=== PATIENT | female | born 1935 | race Caucasian/White ===

== ENCOUNTER 2017-09-26 17:34 | Emergency (ER) | payer OTHER ==
[~2017-09-26] VITALS: Ht 162.6 cm; Wt 56.2 kg
[~2017-09-26 17:34] MED LIST: ASPIRIN EC81 M1 PO; CRESTOR10 M1 PO; CYMBALTA20 M1 PO; DULOXETINE HCL60 MG PO; LEVOTHYROXINE75 MCG PO; METOPROLOL TART25 M1 PO; NAMENDA10 M2 PO; NEXIUM20 M1 PO; PROAIR HFA8.5 GM INH; SYMBICORT 16010.2 GM INH; VITAMIN B-121000 MC3 PO; VITAMIN D1000 UNIT PO
[2017-09-26 17:58] VITALS: BP 168/88
--- NOTE | 2017-09-26 21:01 | CT SCAN REPORT ---
EXAMINATION: CT HEAD WITHOUT CONTRAST CLINICAL INFORMATION: Head trauma. Laceration. COMPARISON: Head CT dated 03/20/2017. TECHNIQUE: Contiguous axial imaging was performed from the skull base to vertex without intravenous administration of contrast. DLP: 603.3 mGy-cm FINDINGS: There is no evidence of acute intracranial hemorrhage or territorial infarction. No abnormal mass effect or midline shift is seen. Quinn to white matter differentiation is well preserved. No extra-axial fluid collections are identified. Moderate to severe chronic white matter microangiopathic changes are present with diffuse parenchymal volume loss. Ventricular prominence is unchanged compared to prior imaging. The osseous structures and soft tissues are normal. The mastoid air cells and visualized portions of the paranasal sinuses are well aerated. 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 No acute intracranial pathology or hemorrhage.
--- NOTE | 2017-09-26 21:09 | ED HEAD/FACIAL INJ COMPLAINT ---
History of Present Illness General Chief Complaint: Facial or Head Injury Stated Complaint: FELL, HIT HEAD, LAC TO HEAD Source: patient Exam Limitations: dementia Vital Signs & Intake/Output Vital Signs & Intake/Output Vital Signs Date Time Temp Pulse Resp B/P B/P Pulse O2 O2 Flow FiO2 Mean Ox Delivery Rate 09/26 1758 97.9 81 16 168/88 95 Room Air Allergies Coded Allergies: No Known Drug Allergies (Intermediate, NONE 01/09/17) Reconcile Medications Albuterol Sulfate (Proair Hfa) 90 MCG HFA.AER.AD 1-2 PUF INH Q4-6 PRN PRN shortness of breath Aspirin (Ecotrin*) 81 MG TABLET.DR 1 TAB PO DAILY HEART/BLOOD (Reported) Budesonide/Formoterol Fumarate (Symbicort 160-4.5 Mcg Inhaler) (Unknown Strength ) HFA.AER.AD (Unknown Dose) INH AD PRN COPD (Reported) Cholecalciferol (Vitamin D3) (Vitamin D) 1,000 UNIT TABLET 1 TAB PO DAILY SUPPLEMENT (Reported) Cyanocobalamin (Vitamin B-12) 1,000 MCG TABLET 1 TAB PO DAILY SUPPLEMENT ( Reported) Duloxetine HCl 60 MG CAPSULE.DR 1 CAP PO DAILY MENTAL HEALTH/NERVE PAIN ( Reported) Esomeprazole Magnesium (Nexium) 20 MG CAPSULE.DR 1 CAP PO DAILY HEARTBURN ( Reported) Levothyroxine Sodium 75 MCG TABLET 1 TAB PO DAILY AC THYROID (Reported) Memantine HCl (Namenda) 10 MG TABLET 1 TAB PO BID MEMORY (Reported) Metoprolol Tartrate 25 MG TABLET 1 TAB PO BID BP (Reported) Rosuvastatin Calcium (Crestor) 10 MG TABLET 1 TAB PO DAILY CHOLESTEROL ( Reported) Triage Note: PT STATES HIT HER HEAD TODAY. PT REPORTS HITTING HER HEAD ON A CABINET DOOR LAC TO LEFT SIDE OF HEAD. PT IS NOT ON BLOOD THINNERS Triage Nurses Notes Reviewed? yes Onset: Abrupt Severity: mild Location: parietal Method of Injury: direct blow Loss of Consciousness: no loss of consciousness HPI: 82-year-old female comes into the emergency room for further evaluation after hitting her head on a cabinet at home. She has a laceration to the left scalp. No loss of consciousness. No vomiting. No headache. No blood thinners. Comes in for further evaluation. (Leonardo PUENTE,Kyle) Past History Travel History Traveled to [place] past 21 day No Medical History Any Pertinent Medical History? see below for history Neurological: dementia EENT: NONE Cardiovascular: NONE Respiratory: NONE Gastrointestinal: NONE Hepatic: NONE Renal: NONE Musculoskeletal: osteoarthritis Psychiatric: NONE Endocrine: NONE Blood Disorders: NONE Cancer(s): NONE DIE MECHANIC/Reproductive: NONE Tetanus Vaccine: 03/20/17 Surgical History Surgical History: non-contributory Psychosocial History What is your primary language Ukrainian Tobacco Use: Never used ETOH Use: denies use Illicit Drug Use: denies illicit drug use Family History Hx Contributory? No (Kyle Davis) Review of Systems Review of Systems Constitutional: Reports: no symptoms. EENTM: Reports: no symptoms. Respiratory: Reports: no symptoms. Cardiovascular: Reports: no symptoms. GI: Reports: no symptoms. Genitourinary: Reports: no symptoms. Musculoskeletal: Reports: no symptoms. Skin: Reports: see HPI. Neurological/Psychological: Reports: see HPI. Hematologic/Endocrine: Reports: no symptoms. Immunologic/Allergic: Reports: no symptoms. All Other Systems: Reviewed and Negative (Kyle Davis) Physical Exam Physical Exam General Appearance: well developed/nourished, mild distress Head: 2 CM LACERATION LEFT SCALP Eyes: Bilateral: normal appearance, PERRL, EOMI. Ears, Nose, Throat: normal ENT inspection, hearing grossly normal Neck: normal inspection Respiratory: normal breath sounds, no respiratory distress Cardiovascular: regular rate/rhythm Back: normal inspection Extremities: normal inspection, normal range of motion, no edema Psychiatric: awake, alert, oriented x 3 Cranial Nerves: normal hearing, normal speech, PERRL Coordination/Gait: normal gait Motor/Sensory: no motor/sensory deficits Skin: intact, normal color, warm/dry (Kyle Davis) Progress Differential Diagnosis: c-spine injury, facial fracture, globe injury, ICH, orbit fracture, skull fracture Plan of Care: No evidence of acute trauma. Return for staple removal or follow-up with PCP. Diagnostic Imaging: Viewed by Me: CT Scan. Discussed w/RAD: CT Scan. Radiology Impression: PATIENT: VINITA MASON PRESENT AGE: 82 PATIENT ACCOUNT NO: [id number] : 36 LOCATION: [facility] ORDERING PHYSICIAN: Kyle PUENTE SERVICE DATE: 09/26/17 EXAM TYPE : CAT - CT HEAD WO IV CONTRAST EXAMINATION: CT HEAD WITHOUT CONTRAST CLINICAL INFORMATION: Head trauma. Laceration. COMPARISON: Head CT dated 03/20/2017. TECHNIQUE: Contiguous axial imaging was performed from the skull base to vertex without intravenous administration of contrast. DLP: 603.3 mGy-cm FINDINGS: There is no evidence of acute intracranial hemorrhage or territorial infarction. No abnormal mass effect or midline shift is seen. Quinn to white matter differentiation is well preserved. No extra-axial fluid collections are identified. Moderate to severe chronic white matter microangiopathic changes are present with diffuse parenchymal volume loss. Ventricular prominence is unchanged compared to prior imaging. The osseous structures and soft tissues are normal. The mastoid air cells and visualized portions of the paranasal sinuses are well aerated. 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 No acute intracranial pathology or hemorrhage. DICTATED BY: Abel Elizabeth MD DATE/TIME DICTATED:09/26/172053 MANAGER INTERNET:RONAK DATE/TIME TRANSCRIBED:09/26/172053 CONFIDENTIAL, DO NOT COPY WITHOUT APPROPRIATE AUTHORIZATION. <Electronically signed in Other Vendor System> SIGNED BY: Abel Elizabeth MD 09/26/172100 (Kyle Davis) Departure Departure Disposition: HOME OR SELF CARE Condition: Stable Clinical Impression Primary Impression: Head injury Secondary Impressions: Scalp laceration Referrals: Matt Dwyer MD (PCP/Family) Additional Instructions: Return in 10 days for staple removal or follow-up with your primary care doctor. Return if any other concerns worsening symptoms. Please go over all results of today's visit with your primary care doctor. Contact your primary care doctor to let them know you were here in the emergency room. There may be nonspecific findings which may not be related to your visit today here in the emergency room but may require further evaluation and chronic monitoring by your primary care doctor. If you had a laceration today the chance of foreign body always remains. You should follow-up with your primary care doctor for recheck in 3-5 days for a wound check. If you had an x-ray done there is a chance that a fracture could have been missed on initial read and you should follow-up with your primary care doctor for repeat x-rays if symptoms persist. If your blood pressure was elevated here in the emergency room please have rechecked by our primary care doctor within the next 48. If you were prescribed a narcotic here in the emergency room or any type of controlled substances you're not allowed to drive while taking this medication or operate any type of heavy machinery. Narcotics can make you feel lightheaded dizziness nausea and can cause constipation. You may need to supervisor opening and picking a stool softener. Thank you for choosing [facility] emergency room. Please return to the emergency room immediately if you have any other concerns worsening of symptoms. Departure Forms: Customer Survey General Discharge Information (Kyle Davis) PA/TANK CAR INSPECTOR Co-Sign Statement Statement: ED Attending supervision documentation- [X] I saw and evaluated the patient. I have also reviewed all the pertinent lab results and diagnostic results. I agree with the findings and the plan of care as documented in the PA's/TANK CAR INSPECTOR's documentation. [X] I have reviewed the ED Record and agree with the PA's/TANK CAR INSPECTOR's documentation. [] Additions or exceptions (if any) to the PAs/TANK CAR INSPECTOR's note and plan are summarized below: (Christiano RODRIGUEZ,Abel Vazquez) Procedures Laceration/Wound Repair Progress: Left scalp, 2 cm laceration, irrigated with peroxide and saline, 1% lidocaine, 4 mL, 3 adrianna placed, bacitracin, Performed by PA student with my supervision (Kyle Davis)
== END 2017-09-26 21:14 ==
LOC: ERH 17:34
DX: S01.01XA Laceration without foreign body of scalp, initial encounter (principal); X58.XXXA Exposure to other specified factors, initial encounter; W22.8XXA Striking against or struck by other objects, initial encounter; Y92.9 Unspecified place or not applicable; Y93.9 Activity, unspecified